=== PATIENT | female | born 2005 | race Caucasian/White ===

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

== ENCOUNTER 2023-04-22 14:54 | Emergency (ER) | payer OTHER, SELFPAY ==
[2023-04-22 15:39] VITALS: BP 128/82; PULSE 70; RESP 16; TEMP 36.7; O2SAT 100
--- NOTE | 2023-04-22 16:18 | ED.GENADULT ---
HPI - General Adult General Chief complaint: Upper Respiratory Infection Stated complaint: Sore Throat,Whezing Time Seen by Provider: 04/22/23 16:18 Source: patient, RN notes reviewed and old records reviewed Mode of arrival: ambulatory Limitations: no limitations History of Present Illness HPI narrative: 18-year-old female presents to the [facility] with a complaint of a sore throat this morning. Patient reports that she woke up this morning wheezing and a sore throat. Has taken a 1 cough drop. States the wheezing went away without any treatment. Denies any other symptoms Onset (ago): hour(s) Related Data Home Medications Medication Instructions Recorded Confirmed medroxyprogesterone 150 mg/mL 150 mg IM [id number] brith control 01/27/21 04/22/23 intramuscular syringe valacyclovir 500 mg tablet 500 mg PO DAILY 04/22/23 04/22/23 Allergies Allergy/AdvReac Type Severity Reaction Status Date / Time shellfish derived Allergy Severe Anaphylactic Verified 04/22/23 15:50 Shock Review of Systems Review of Systems: All systems reviewed & are unremarkable except as noted in HPI and below Constitutional: Constitutional: Reports no additional constitutional complaints Eyes: Eyes: Reports no additional eye complaints ENT: Reports as per HPI and Reports sore throat Cardiovascular: Cardiovascular: Reports no additional cardiovascular complaints, Denies chest pain and Denies dyspnea Respiratory: Respiratory: Reports as per HPI, Denies chest congestion, Denies cough and Denies dyspnea Gastrointestinal: Gastrointestinal: Reports no additional gastrointestinal complaints, Denies abdominal pain, Denies nausea and Denies vomiting Musculoskeletal: Musculoskeletal: Reports no additional musculoskeletal complaints Integumentary/Breasts: Skin/Breast: Reports system reviewed and no additional complaints, except as docu Neurologic: Reports system reviewed and no additional complaints, except as documented Psychiatric: Psychiatric: Reports no additional psychiatric complaints Allergic/Immunologic: Allergic/Immunologic: Reports no additional allergic/immunologic complaints PMF Past Medical History Medical History Anxiety IBS (irritable bowel syndrome) Surgical History Surgical History History of laparoscopic appendectomy Family History Family History Other No pertinent family history Social History Social History Social History: She wishes to be a full code. She designates her mother, Otilia Herron, to be her medical decision maker if she is unable to make decisions herself. Smoking status: Former smoker (Former cigarette smoker. Currently vapes/uses e-cigarettes.) Tobacco type: e-cigarettes/vaping Smoking end date: 01/23/21 Additional smoking assessment comments: She vaped for 3 years Alcohol intake: never Substance use: current Substance use type: marijuana Other substance usage details: Smokes marijuana daily Last use: Two days ago Occupation/Education: occupation Additional occupation/education comments: Works at [employer] Gender identity (if verbalized by the patient): Female Spiritual care concerns: No Comments At the time of my signature, I reviewed and agree with the nursing past medical, surgical, social, and family history. There is no relevant family history pertinent to the patient complaint. Exam Const: General: cooperative, healthy appearing, comfortable, no acute distress, well developed, alert and well nourished Nutritional Appearance: well nourished Orientation/consciousness: patient oriented x3 Limitations: no limitations HENMT: Head: normal to inspection Ears: hearing grossly normal bilaterally, external ears normal, TM's normal bilaterally, EAC
== END 2023-04-22 16:25 | disposition home or self-care (01) ==
PROVIDERS: Emergency Provider Nurse Practitioner
DX: J02.9 Acute pharyngitis, unspecified (principal); Z87.891 Personal history of nicotine dependence; F12.90 Cannabis use, unspecified, uncomplicated
CPT/HCPCS: 87081; 87880; 99213; G0463